=== PATIENT | male | born 1950 | race Caucasian/White ===

== ENCOUNTER 2025-07-14 08:34 | Day surgery (SDC) | payer MEDICARE, BC ==
[2025-07-11 10:53] LABS: MEAN PLATELET VOLUME 9.1 FL (7.4-10.4); PRE OP HEMATOCRIT 46.9 % (42.0-52.0); PRE OP HEMOGLOBIN 15.8 g/dL (14.0-17.9); PRE OP PLATELET COUNT 247 X10'3 (140-440); PRE OP WHITE BLOOD COUNT 9.5 10'3 (4.8-10.8); RED CELL DISTRIBUTION WIDTH 14.3 % (11.5-14.5)
[2025-07-11 11:11] LABS: CREATININE 0.94 MG/DL (0.60-1.10); PRE OP ALT 34 U/L (30-65); PRE OP ANION GAP 5 (8-16); PRE OP AST 30 U/L (10-37); PRE OP BILIRUB, TOTAL 0.5 MG/DL (0.0-1.0); PRE OP GLUCOSE 100 MG/DL (70-104); PRE OP POTASSIUM 4.3 MMOL/L (3.4-5.1); PRE OP SODIUM 141 MMOL/L (135-145); TOTAL CARBON DIOXIDE 30.6 MMOL/L (24-32); eGFR 78 ML/MIN
--- NOTE | 2025-07-11 11:35 | ELECTROCARDIOGRAPH REPORT ---
[facility] Test Date: 2025-07-11 Test Time: 12:33:06 Pat Name: BLAINE JONES Department: [facility]-PRE-OP Patient ID: [facility]-[id number] Room: Gender: M Sales Engineer: MATY : 1950 Requested By: CYNTHIA FARRELL Order Number: [id number] Reading MD: Dr. MAEGAN Gomez Measurements Intervals [place] Rate: 60 P: 75 VA: 176 QRS: 66 QRSD: 86 T: 61 QT: 391 QTc: 391 Interpretive Statements Sinus rhythm Consider left atrial enlargement Electronically Signed On 07-11-2025 16:53:[address] MAEGAN Gomez Please click the below link to view image of tracing.
[~2025-07-14] VITALS: Ht 172.7 cm; Wt 70.3 kg
[2025-07-14] VITALS (7 sets, daily range): BP systolic 111–143; BP diastolic 64–71; PULSE 58–69; RESP 9–17; TEMP 97.5; O2SAT 95–100
[2025-07-14] MEDS: DOCUMENT DATE & TIME OF BETA-BLOCKER PO ONE (05:30)
[2025-07-14] MEDS: ceFAZolin 2gm/dext,iso 50mL 50 ML IV ONE (05:30)
[~2025-07-14 08:34] MED LIST: ASPI-1071 PO; ATOR-2 PO; BUPIVAcaine/PF 2.5mg/ml (0.25%) 10ml vial ONE; EZET10TA6 PO; LIDOcaine 2% (20mg/ml) 5ml vial ONE; METF-1203 PO; METO-539 PO
[2025-07-14] MEDS ORDERED: labetalol 20mg/4ml (5mg/ml) syringe IV PRN (09:00)
[2025-07-14] MEDS ORDERED: acetaminophen 1,000mg/100ml IV 100 ML IV PRN (09:00)
[2025-07-14] MEDS ORDERED: HYDROmorphone/PF 0.2 MG/ML SYRINGE IV PRN ×2 (09:00)
[2025-07-14] MEDS ORDERED: morphine 4 MG/ML inj SYRINge IV PRN ×2 (09:00)
[2025-07-14] MEDS ORDERED: hydrALAZINE 20mg/ml inj. IV PRN (09:00)
[2025-07-14] MEDS ORDERED: BUPIVAcaine/PF 2.5mg/ml (0.25%) 10ml vial ONE (09:00)
[2025-07-14] MEDS ORDERED: ondansetron/PF 4mg/2ml inj IV PRN (09:00)
[2025-07-14] MEDS ORDERED: fentaNYL/PF 50MCG/1 ML 2ML syringe ONE (10:56)
[2025-07-14] MEDS ORDERED: midazolam 1 mg/ML 2ml injection ONE (10:57)
[2025-07-14] MEDS ORDERED: LIDOcaine 0.5% (5mg/ml) 50ml vial ONE (10:58)
[2025-07-14] MEDS ORDERED: propofol inj 20 ML IV ONE (11:05)
--- NOTE | 2025-07-14 19:23 | OPERATIVE REPORT ---
Operative Report Providers to ~ Date of Procedure: Jul 14, 2025 Pre-Operative Diagnosis: Dupuytren's contracture left hand Post-Operative Diagnosis SAME as PRE-Op Procedure Performed Left palm and ring finger fasciectomy. Surgeon: Joel Solomon MD Carbon Cleaner None Anesthesiologist: Ramiro Fragoso Type of Anesthesia: Regional Findings: Estimated Blood Loss: None Specimen Removed: None Description of Procedure: The patient is a 75-year-old man with Dupuytren's contracture involving primarily left ring finger. Surgery is indicated to improve function. Risks and benefits were discussed with the patient and he agreed to proceed. He was brought to the operating room where the block was given along with the ant ibiotics. The arm was prepped and draped in usual manner and a time-out procedure was observed. An incision was made starting at the palm over the diseased fascia extending out to the PIP crease of the ring finger in a zigzag manner. So after elevated and the fascia was identified proximally and excised. This relieved the MCP contracture. The fascia was tracked distally to the base of the digit and excised to that level. Neurovascular bundles were identified and protected and spiral cord was identified in the ulnar side. This was excised preserving the nerve. Once this was done the contracture was released. Thorough irrigation was done along with a cauterization small bleeders. The incision was closed with Prolene suture Marcaine was injected and a sterile dressing was applied along with a splint. The tourniquet was released the hand perfused well and he was taken to recovery room in stable condition and tolerated the procedure well. JOEL SOLOMON Jr., MD Jul 14, 2025 19:23
== END 2025-07-14 12:41 | disposition home or self-care (01) ==
LOC: PAS 08:34
PROVIDERS: ATTEND Orthopaedic Surgery Hand Surgery
DX: M72.0 Palmar fascial fibromatosis [Dupuytren] (principal); E11.9 Type 2 diabetes mellitus without complications; I10 Essential (primary) hypertension; I25.10 Atherosclerotic heart disease of native coronary artery without angina pectoris; Z98.890 Other specified postprocedural states; Z82.49 Family history of ischemic heart disease and other diseases of the circulatory system; Z82.0 Family history of epilepsy and other diseases of the nervous system; Z79.84 Long term (current) use of oral hypoglycemic drugs; Z79.82 Long term (current) use of aspirin; Z95.5 Presence of coronary angioplasty implant and graft
CPT/HCPCS: 26123; 36415; 80053; 82948; 85025; 93005; A4215; A4618; A6222; A6402; A6449; A7000; J2003; J2250; J2704; J3010; J3490; J7030; J7120; Z7506; Z7512; Z7610